=== PATIENT | male | born 1980 | race Caucasian/White ===

== ENCOUNTER 2020-01-18 11:08 | Emergency (ER) | payer OTHER ==
[2020-01-19 15:27] LABS: SARS-CoV-2 MS2 Positive; SARS-CoV-2 N Gene Positive; SARS-CoV-2 S Gene Positive; SARS-CoV-2 orf1ab Positive
== END 2020-01-18 12:23 | disposition home or self-care (01) ==
LOC: MADERS 11:08
DX: U07.1 COVID-19 (principal); J45.909 Unspecified asthma, uncomplicated
CPT/HCPCS: 87635; 99283; U0003